=== PATIENT | female | born 1985 | race Caucasian/White ===

== ENCOUNTER 2022-04-03 20:02 | Emergency (ER) | payer OTHER ==
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
[2022-04-04 01:44] VITALS: BP 126/87
== END 2022-04-04 01:44 | disposition home or self-care (01) ==
LOC: ED 20:02
DX: S96.811A Strain of other specified muscles and tendons at ankle and foot level, right foot, initial encounter (principal); S86.812A Strain of other muscle(s) and tendon(s) at lower leg level, left leg, initial encounter; V87.7XXA Person injured in collision between other specified motor vehicles (traffic), initial encounter; Y93.89 Activity, other specified; Y92.488 Other paved roadways as the place of occurrence of the external cause; Y99.8 Other external cause status
CPT/HCPCS: 99283